=== PATIENT | female | born 1985 | race Two or more races ===

== ENCOUNTER 2018-06-02 20:45 | Inpatient (IN) | payer OTHER | END 2018-06-05 11:29 | disposition HB | DRG 775 | LOC: LDR 20:45 → OB/GYN 21:38 → LDR 22:28 → OB/GYN 06-03 21:19 | PROC: 10E0XZZ Delivery of Products of Conception, External Approach (ICD-10-PCS; principal; 2018-06-02) | PROC: 4A1HXCZ Monitoring of Products of Conception, Cardiac Rate, External Approach (ICD-10-PCS; 2018-06-02) | DX: O80 Encounter for full-term uncomplicated delivery (principal); Z37.0 Single live birth; Z3A.39 39 weeks gestation of pregnancy ==

== ENCOUNTER 2018-08-09 06:14 | Emergency (ER) | payer OTHER ==
[~2018-08-09] VITALS: Ht 172.7 cm; Wt 71.2 kg
[~2018-08-09 06:14] MED LIST: INTESTINEX1 CA1 PO; INTESTINEX1 CAP PO; PRENATABS RX T1 EACH PO; PRENATAL1 TAB; PROTONIX40 MG PO
== END 2018-08-09 09:30 | disposition home or self-care (01) ==
LOC: ER 06:14
DX: R51 Headache (principal); R53.1 Weakness; F41.8 Other specified anxiety disorders

== ENCOUNTER → 2021-07-04 | Outpatient (CLI) | payer OTHER | END | disposition home or self-care (01) | LOC: MRI 11:25 | PROVIDERS: ATTEND Orthopaedic Surgery | DX: M25.462 Effusion, left knee (principal); M25.562 Pain in left knee; M25.561 Pain in right knee | CPT/HCPCS: 73721 ==

== ENCOUNTER 2024-04-05 10:39 | Emergency (ER) | payer OTHER ==
[~2024-04-05] VITALS: Ht 172.7 cm; Wt 69.4 kg
[2024-04-05] MEDS ORDERED: ORPHENADRINE CITRATE 30 MG/ML AMPUL IM ONE (12:30)
[2024-04-05] MEDS ORDERED: METHYLPREDNISOLONE SOD SUCC 40 MG VIAL IM ONE (12:30)
[2024-04-05] MEDS ORDERED: BENZONATATE 100 MG CAPSULE PO ONE (12:30)
[2024-04-05] MEDS ORDERED: LEVALBUTEROL HCL 0.63 MG/3 ML SOLUTION IH ONE (12:30)
[2024-04-05 14:17] LABS: HEMATOCRIT 36.9 % (36.0-45.00); HEMOGLOBIN 12.7 g/dL (12.0-15.00); MEAN CELL VOLUME 94.3 fL (80.00-100.00); MEAN CORPUSCULAR HEMOGLOBIN 32.5 pg (27.00-32.0); MEAN CORPUSCULAR HGB CONC 34.5 g/dl (32.0-36.0); PLATELET COUNT 236 K/uL (150-450); RED BLOOD COUNT 3.91 M/uL (4.00-6.00); RED CELL DISTRIBUTION WIDTH 13.3 % (11.5-14.5)
== END 2024-04-05 16:36 | disposition home or self-care (01) ==
LOC: ER 10:40
PROVIDERS: General Practice
DX: J00 Acute nasopharyngitis [common cold] (principal); M54.50 Low back pain, unspecified; Z20.822 Contact with and (suspected) exposure to COVID-19